=== PATIENT | female | born 1995 | race Caucasian/White ===

== ENCOUNTER 2017-03-05 15:23 | Emergency (ER) | payer BC ==
[2017-03-05] MEDS ORDERED: HYDROCODONE/ACETAMINOPHEN 5-325 MG TABLET PO ONE (16:39)
[2017-03-05] MEDS ORDERED: AMOXICILLIN TRIHYDRATE 500 MG CAPSULE PO ONE (16:39)
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
[2017-03-05 17:18] VITALS: BP 132/71
== END 2017-03-05 17:00 | disposition home or self-care (01) ==
LOC: ER 15:23
DX: S09.93XA Unspecified injury of face, initial encounter (principal); Y04.0XXA Assault by unarmed brawl or fight, initial encounter; F17.200 Nicotine dependence, unspecified, uncomplicated
CPT/HCPCS: 99283

== ENCOUNTER 2017-09-19 19:10 | Emergency (ER) | payer BC ==
--- NOTE | 2017-09-19 20:35 | ER Document Report ---
ED Medical Screen (RME) - General Mode of Arrival: Ambulatory Information source: Patient TRAVEL OUTSIDE OF THE [place] IN LAST 30 DAYS: No <SUSAN MADRIGAL - Last Filed: 09/19/17 20:36> <SHERRIE MONSALVE - Last Filed: 09/19/17 20:52> - General Chief Complaint: Passed Out Prior to Arrival Stated Complaint: FALL,DIZZINESS Time Seen by Provider: 09/19/17 20:25 Notes: 22 year old female that presents to the emergency department today with complaints of syncope just prior to arrival. Patient is 15 weeks . Patient states she felt diaphoretic, feeling like she needed to sit down when she "passed out". Patient scraped her right knee. Patient denies any diarrhea , cough, vaginal discharge, urinary symptoms, or abdominal pain. (SUSAN MADRIGAL) - Related Data Allergies/Adverse Reactions: No Known Allergies Allergy (Verified 03/05/17 15:36) Past Medical History - General Information source: Patient Renal/ Medical History: Denies: Hx Peritoneal Dialysis Psychiatric Medical History: Reports: Hx Anxiety, Hx Depression - Anxiety Surgical Hx: Negative - Immunizations Immunizations up to date: Yes Hx Diphtheria, Pertussis, Tetanus Vaccination: Yes <SUSAN MADRIGAL - Last Filed: 09/19/17 20:36> - Social History Cigarette use (# per day): No Family history: Reviewed & Not Pertinent <SHERRIE MONSALVE - Last Filed: 09/19/17 20:52> Review of Systems - Review of Systems Constitutional: See HPI, Diaphoresis Cardiovascular: See HPI, Syncope Female Genitourinary: See HPI, <SUSAN MADRIGAL - Last Filed: 09/19/17 20:36> Physical Exam - General General appearance: Appears well In distress: None - HEENT Head: Normocephalic, Atraumatic Eyes: Normal Mucous membranes: Dry - Respiratory Respiratory status: No respiratory distress Chest status: Nontender - Cardiovascular Rhythm: Regular Heart sounds: Normal auscultation Murmur: No <SUSAN MADRIGAL - Last Filed: 09/19/17 20:36> - Vital signs Vitals: Temp Pulse Resp BP Pulse Ox 98.0 F 72 16 109/55 L 99 09/19/17 19:34 09/19/17 19:34 09/19/17 19:34 09/19/17 19:34 09/19/17 19:34 - Vital Signs Vital signs: Temp Pulse Resp BP Pulse Ox 98.0 F 72 16 109/55 L 99 09/19/17 19:34 09/19/17 19:34 09/19/17 19:34 09/19/17 19:34 09/19/17 19:34 Scribe Documentation - Scribe Written by Scribe:: Apple Lau, [id number] acting as scribe for :: Maciej <SUSAN MADRIGAL - Last Filed: 09/19/17 20:36>
[2017-09-19 20:56] LABS: ABSOLUTE BASOPHILS # (AUTO) 0.1 10^3/uL (0.0-0.2); ABSOLUTE EOSINOPHILS # (AUTO) 0.1 10^3/uL (0.0-0.6); ABSOLUTE LYMPHOCYTES (AUTO) 1.8 10^3/uL (0.5-4.7); ABSOLUTE MONOCYTES (AUTO) 0.5 10^3/uL (0.1-1.4); BASOPHILS % (AUTO) 0.7 % (0-2); EOSINOPHILS % (AUTO) 1.7 % (0-6); HEMATOCRIT 34.8 % (36.0-47.0); HEMOGLOBIN 11.9 g/dL (12.0-15.5); LYMPHOCYTES % (AUTO) 21.2 % (13-45); MEAN CORPUSCULAR HEMOGLOBIN 31.2 pg (27.0-33.4); MEAN CORPUSCULAR HGB CONC 34.3 g/dL (32.0-36.0); MEAN CORPUSCULAR VOLUME 91 fl (80-97); MONOCYTES % (AUTO) 5.9 % (3-13); PLATELET COUNT 240 10^3/uL (150-450); RED BLOOD COUNT 3.82 10^6/uL (3.72-5.28); RED CELL DISTRIBUTION WIDTH 13.3 % (11.5-14.0); SEGMENTED NEUTROPHILS % (AUTO) 70.5 % (42-78); TOTAL CELLS COUNTED % (AUTO) 100 %; WHITE BLOOD COUNT 8.5 10^3/uL (4.0-10.5)
[2017-09-19 21:24] LABS: ANION GAP 7 (5-19); BLOOD UREA NITROGEN 11 mg/dL (7-20); CALCIUM 9.4 mg/dL (8.4-10.2); CARBON DIOXIDE 26 mmol/L (22-30); CHLORIDE 104 mmol/L (98-107); GLUCOSE 54 mg/dL (75-110); POTASSIUM 4.1 mmol/L (3.6-5.0); SODIUM 136.5 mmol/L (137-145)
--- NOTE | 2017-09-19 22:11 | EKG REPORT ---
SEVERITY:- NORMAL ECG - SINUS RHYTHM : Confirmed by: Gilbert Gordon 19-Sep-2017 22:11:10
[2017-09-19] MEDS ORDERED: NORMAL SALINE 1000 ML 1,000 ML IV ONE (23:23)
--- NOTE | 2017-09-19 23:33 | ER Document Report ---
ED General - General Chief Complaint: Passed Out Prior to Arrival Stated Complaint: FALL,DIZZINESS Time Seen by Provider: 09/19/17 20:25 Mode of Arrival: Ambulatory Notes: Patient is a 22-year-old female currently 15 weeks gestation who presents with an episode of passing out. Patient states that she was leaving a restaurant when she became lightheaded, diaphoretic, nauseated and then lost consciousness. She apparently has not ate or drink anything hardly all day. Significant other at the bedside reports that she has drank almost no water whatsoever. At the time of my assessment patient denies any ongoing symptoms or complaints. She states that she has a history of near syncope frequently in the past but has never actually syncopized. She denies any chest pain or shortness of breath either before or after the episode of syncope. No headache. She has not had any vaginal bleeding or discharge. She did not strike her abdomen during the fall today. She did fall and scraped her right knee. She denies any difficulty with range of motion of the knee or any pain to the area. Tetanus is up-to-date. TRAVEL OUTSIDE OF THE [place] IN LAST 30 DAYS: No - Related Data Allergies/Adverse Reactions: No Known Allergies Allergy (Verified 03/05/17 15:36) Past Medical History - General Information source: Patient - Social History Smoking Status: Current Every Day Smoker Cigarette use (# per day): No Chew tobacco use (# tins/day): No Frequency of alcohol use: None Drug Abuse: None Lives with: Spouse/Significant other Family History: Reviewed & Not Pertinent, Other - ovarian cysts Patient has suicidal ideation: No Patient has homicidal ideation: No Renal/ Medical History: Denies: Hx Peritoneal Dialysis Psychiatric Medical History: Reports: Hx Anxiety, Hx Depression - Anxiety Surgical Hx: Negative - Immunizations Immunizations up to date: Yes Hx Diphtheria, Pertussis, Tetanus Vaccination: Yes Review of Systems - Review of Systems Notes: Constitutional: Negative for fever. HENT: Negative for sore throat. Eyes: Negative for visual changes. Cardiovascular: Negative for chest pain. Respiratory: Negative for shortness of breath. Gastrointestinal: Negative for abdominal pain, vomiting or diarrhea. Genitourinary: Negative for dysuria. Musculoskeletal: Negative for back pain. Skin: Negative for rash. Neurological: Negative for headaches, weakness or numbness. 10 point ROS negative except as marked above and in HPI. Physical Exam - Vital signs Vitals: Temp Pulse Resp BP Pulse Ox 98.0 F 72 16 109/55 L 99 09/19/17 19:34 09/19/17 19:34 09/19/17 19:34 09/19/17 19:34 09/19/17 19:34 Interpretation: Normal Notes: PHYSICAL EXAMINATION: GENERAL: Well-appearing, well-nourished and in no acute distress. HEAD: Atraumatic, normocephalic. EYES: Pupils equal round and reactive to light, extraocular movements intact, sclera anicteric, conjunctiva are normal. ENT: nares patent, oropharynx clear without exudates. Moist mucous membranes. NECK: Normal range of motion, supple without lymphadenopathy LUNGS: Breath sounds clear to auscultation bilaterally and equal. No wheezes rales or rhonchi. HEART: Regular rate and rhythm without murmurs ABDOMEN: Soft, nontender, normoactive bowel sounds. No guarding, no rebound. No masses appreciated. EXTREMITIES: Normal range of motion, no pitting or edema. No cyanosis. NEUROLOGICAL: No focal neurological deficits. Moves all extremities spontaneously and on command. PSYCH: Normal mood, normal affect. SKIN: Warm, Dry, normal turgor, superficial abrasion over the right knee Course - Re-evaluation Re-evalutation: 09/19/17 23:27 Presentation of syncope likely secondary orthostatic hypotension. Patient admits to almost no oral fluid intake or food intake and is visibly dehydrated on examination. Patient is also hypoglycemic at time of presentation due to poor oral intake. IV fluids have been provided. Patient is 15 weeks gestation , normal heart tones, no vaginal bleeding or abdominal trauma today. Patient's heart rate went from 67-97 from a lying to standing position. Patient normotensive, alert, without focal neurologic deficits at time of arrival. Denies syncope was during exertion. No preceding symptoms of palpitations, chest pain, or shortness of breath. Patient asymptomatic at time of arrival. EKG is without evidence of HCOM, right heart strain, ST changes to suggest ischemia, prolong QTc, delta wave, epsilon wave, or Brugada syndrome. Patient denies any family history of sudden cardiac , personal history of of structural heart disease. Patient denies any symptoms to suggest an acute PE, SD , TAD, SAH, seizure, or acute GI bleed as the etiology of their syncope today. On exam, no murmurs to suggest critical aortic stenosis as possible etiology. Patient did strike her right knee when she fell and there is an abrasion over the right patella but no limited range of motion. Patient has declined an x- ray. Based on overall clinical history, exam findings, vitals, and patients appearance, I feel it is safe for patient to be discharged home at this time with close outpatient follow-up and strict return precautions. Patient is in agreement with this plan, has verbalized indications for return to ED, and questions have been answered. - Vital Signs Vital signs: Temp Pulse Resp BP Pulse Ox 98.0 F 66 18 105/63 100 09/19/17 19:34 09/19/17 22:47 09/20/17 00:02 09/20/17 00:02 09/20/17 00:02 - Laboratory Result Diagrams: 09/19/17 20:46 09/19/17 20:46 Laboratory results interpreted by me: 09/19/17 09/19/17 20:46 20:46 Hgb 11.9 L Hct 34.8 L Sodium 136.5 L Glucose 54 L - EKG Interpretation by Me Additional EKG results interpreted by me: 09/19/17 23:35 Sinus bradycardia. Rate 59. No ST elevations or depressions. QTC is 385. Discharge - Discharge Clinical Impression: Orthostatic hypotension, Second trimester , Hypoglycemia Syncope Qualifiers: Syncope type: unspecified Qualified Code(s): R55 - Syncope and collapse Condition: Good Disposition: HOME, SELF-CARE Additional Instructions: You were seen today after an episode of passing out. You are dehydrated and your blood sugar was low from not eating and drinking enough. Need to be sure to drink plenty of fluids and eat regularly throughout the day, particular given that you are . Your EKG here is normal. At this time, we do not feel that your episode of passing out was from any life-threatening cause. Return to emergency department if you have any further episodes of syncope, headache, weakness, numbness, chest pain, or shortness of breath. Please follow up closely with your primary care physician. Referrals: AME LOPEZ MD [Primary Care Provider] - Follow up as needed
[2017-09-20 00:36] VITALS: BP 105/63
== END 2017-09-20 00:36 | disposition home or self-care (01) ==
LOC: ER 19:10
DX: O26.892 Other specified pregnancy related conditions, second trimester (principal); I95.1 Orthostatic hypotension; E16.2 Hypoglycemia, unspecified; Z3A.15 15 weeks gestation of pregnancy; O99.332 Smoking (tobacco) complicating pregnancy, second trimester
CPT/HCPCS: 93005; 99284; 96360; 36415; 85025; 80048; 93010; J7030

== ENCOUNTER 2018-03-02 08:05 | Inpatient (IN) | payer BC ==
[2018-03-02 09:12] LABS: APPEARANCE,URINE SLIGHTLY-CLOUDY; BILIRUBIN,URINE NEGATIVE (NEGATIVE); COLOR,URINE YELLOW; GLUCOSE, URINE NEGATIVE (NEGATIVE); KETONES,URINE NEGATIVE (NEGATIVE); LEUKOCYTE ESTERASE,URINE SMALL (NEGATIVE); NITRITE,URINE NEGATIVE (NEGATIVE); PROTEIN,URINE NEGATIVE (NEGATIVE); URINE SPECIFIC GRAVITY 1.018
[2018-03-02 09:12] LABS: AMNISURE (ROM) POSITIVE (NEGATIVE)
[2018-03-02 09:26] LABS: URINE AMPHETAMINES SCREEN NEGATIVE; URINE BARBITURATES SCREEN NEGATIVE; URINE BENZODIAZEPINES SCREEN NEGATIVE; URINE COCAINE SCREEN NEGATIVE; URINE METHADONE SCREEN NEGATIVE; URINE PHENCYCLIDINE SCREEN NEGATIVE
[2018-03-02 09:33] LABS: URINE MARIJUANA (THC) SCREEN UNCONFIRMED POSITIVE
[2018-03-02] MEDS ORDERED: PENICILLIN G-K 5 MILLION UNIT VIAL ONE (09:59)
[2018-03-02] MEDS ORDERED: MISOPROSTOL 0.2 MG TABLET ONE (11:25)
[2018-03-02] MEDS ORDERED: FENTANYL/BUPIVACAINE/NS/PF 300 MCG/150 ML RTUINJ EPI ONE (11:26)
[2018-03-02] MEDS ORDERED: PHENYLEPHRINE HCL INJ/PF 10 MG/1 ML SDV ONE (11:26)
[2018-03-02] MEDS ORDERED: FENTANYL CITRATE INJ/PF 100 MCG/2 ML AMPUL ONE (11:26)
[2018-03-02] MEDS ORDERED: EPHEDRINE SULFATE INJ 50 MG/1 ML AMPULE ONE (11:26)
[2018-03-02] MEDS ORDERED: LIDOCAINE 2%/EPINEPHRINE INJ 20 ML VIAL ONE (11:27)
[2018-03-02] MEDS ORDERED: OXYTOCIN/NORMAL SALINE 20 UNIT/1,000 ML RTUINJ ONE (11:27)
[2018-03-02] MEDS ORDERED: BUPIVACAINE HCL 0.25 % INJ/PF (2.5 MG/1 ML) 30 ML VIAL ONE (11:27)
[2018-03-02] MEDS ORDERED: LIDOCAINE 1% INJ-PF (10 MG/ML) 30 ML SDV ONE (11:27)
[2018-03-02 11:51] LABS: ABSOLUTE BASOPHILS # (AUTO) 0.2 10^3/uL (0.0-0.2); ABSOLUTE EOSINOPHILS # (AUTO) 0.1 10^3/uL (0.0-0.6); ABSOLUTE LYMPHOCYTES (AUTO) 2.5 10^3/uL (0.5-4.7); ABSOLUTE MONOCYTES (AUTO) 0.4 10^3/uL (0.1-1.4); ABSOLUTE NEUT (AUTO) 8.5 10^3/uL (1.7-8.2); BASOPHILS % (AUTO) 1.5 % (0-2); EOSINOPHILS % (AUTO) 0.6 % (0-6); HEMATOCRIT 38.1 % (36.0-47.0); HEMOGLOBIN 12.8 g/dL (12.0-15.5); LYMPHOCYTES % (AUTO) 21.6 % (13-45); MEAN CORPUSCULAR HEMOGLOBIN 31.3 pg (27.0-33.4); MEAN CORPUSCULAR HGB CONC 33.7 g/dL (32.0-36.0); MEAN CORPUSCULAR VOLUME 93 fl (80-97); MONOCYTES % (AUTO) 3.8 % (3-13); PLATELET COUNT 296 10^3/uL (150-450); RED CELL DISTRIBUTION WIDTH 13.5 % (11.5-14.0); SEGMENTED NEUTROPHILS % (AUTO) 72.5 % (42-78); TOTAL CELLS COUNTED % (AUTO) 100 %; WHITE BLOOD COUNT 11.8 10^3/uL (4.0-10.5)
[2018-03-02] MEDS ORDERED: RINGERS SOLUTION,LACTATED 1,000 ML IV PRN (12:33)
[2018-03-02] MEDS ORDERED: LIDOCAINE 1.5%/EPINEPHRINE INJ-PF 30 ML SDV ONE (12:36)
--- NOTE | 2018-03-02 12:39 | Admission Physical ---
Datetime Report Generated by CPN: 03/02/2018 12:39 CURRENT ADMISSION Chief Complaint: Uterine Contractions; Suspected Ruptured Membranes Indication for Induction: Not Applicable Admit Impression : Term, Intrauterine ; Active Labor Admit Plan: Admit to Unit ALLERGIES Medication Allergies: No Medication Allergies: No Known Allergies (03/02/2018) Latex: No Latex Allergies Food Allergies: NONE Environmental Allergies: NONE OBSTETRICAL HISTORY EDC: 03/07/2018 00:00 : 1 Para: 0 Term: 0 : 0 SAB: 0 IAB: 0 Ectopic: 0 Livin Cesareans: 0 VBACs: 0 Multiple Births: 0 Gestational Diabetes: No Rh Sensitization: No Incompetent Cervix: No JULIA: No Infertility: No ART Treatment: No Uterine Anomaly: No IUGR: No Hx Previous C/S: No Macrosomia: No Hx Loss/Stillborn: No PIH: No Hx : No Placenta Previa/Abruption: No Depression/PP Depression: Yes PTL/PROM: No Post Hemorrhage: No Current Procedures: Ultrasound SEE RECORDS Alcohol: No Marijuana : Yes Marijuana Frequency: Occasional Previous Treatment: None Marijuana Comments: 3-4 WEEKS AGO Cocaine: No Other Illicit Drugs: No Cigarettes: Former Smoker. [id number] Cigarette Frequency: < 5 per day Advised to Stop: Yes MEDICAL HISTORY Diabetes: No Blood Transfusion: No Pulmonary Disease (Asthma, TB): Yes Breast Disease: No Hypertension: No Ingot Stripper Surgery: No Heart Disease: No Hosp/Surgery: No Autoimmune Disorder: No Anesthetic Complications: No Kidney Disease: No Abnormal Pap Smear: No Neuro/Epilepsy: No Psychiatric Disorders: Yes Other Medical Diseases: No Hepatitis/Liver Disease: No Significant Family History: No Varicosities/Phlebitis: No Trauma/Violence : No Thyroid Dysfunction: No Medical History Comments: H/O DEPRESSION _ ANXIETY SEASONAL ASTHMA INFECTIOUS HISTORY Gonorrhea: No Genital Herpes: No Chlamydia: No Tuberculosis: No Syphilis: No Hepatitis: No HIV/AIDS Exposure: No Rash or Viral Illness: No HPV: No PHYSICAL EXAM General: Normal HEENT: Normal Neurologic: Normal Thyroid: Normal Heart: Normal Lungs: Normal Breast: Normal Back: Normal Abdomen: Normal Genitourinary Exam: Normal Extremities: Normal DTRs: Normal Pelvic Type: Adequate Vital Signs: Reviewed VAGINAL EXAM Dilatation: 3 Effacement: 90 Station: -1 MEMBRANES Pooling: Positive Membranes: Ruptured Amniotic Fluid Color: Clear FETUS A EGA: 39.2 Monitoring: External US FHR- Baseline: 130 Variability: Moderate 6-25bpm Accelerations: 15X15 Decelerations: None FHR Category: Category I Estimated Weight (gm): 3500 Presentation: Vertex PLANS FOR LABOR AND DELIVERY Labor and Delivery: None Pain Management: Medications; Epidural Feeding Preference: Breast Benefit of Breast Feed Discussed: Yes Circumcision: N/A INFORMED CONSENT Signature: with User ID: [email or web address]
[2018-03-02] MEDS ORDERED: DIBUCAINE 1% OINTMENT 28 GM TP PRN (16:07)
[2018-03-02] MEDS ORDERED: MEASLES,MUMPS&RUBELLA VACC/PF 0.5 ML VIAL SUBCUT PRN (16:07)
[2018-03-02] MEDS ORDERED: NA PHOS,M-B/NA PHOS,DI-BA (ADULT) 133 ML ENEMA PR PRN (16:07)
[2018-03-02] MEDS ORDERED: ZOLPIDEM TARTRATE 5 MG TABLET PO PRN (16:07)
[2018-03-02] MEDS ORDERED: ACETAMINOPHEN 650 MG SUPP.RECT PR PRN (16:07)
[2018-03-02] MEDS ORDERED: PROMETHAZINE HCL INJ 25 MG/1 ML VIAL IV PRN (16:07)
[2018-03-02] MEDS ORDERED: PROMETHAZINE HCL 25 MG SUPP.RECT PR PRN (16:07)
[2018-03-02] MEDS ORDERED: PROMETHAZINE HCL 25 MG TABLET PO PRN (16:07)
[2018-03-02] MEDS ORDERED: ACETAMINOPHEN WITH CODEINE #3 TABLET PO PRN (16:07)
[2018-03-02] MEDS ORDERED: GLYCERIN/WITCH HAZEL LEAF 1 EACH MED..PAD TP PRN (16:07)
[2018-03-02] MEDS ORDERED: DIPH/PERTUSS(ACELL)/TETANUS VAC/PF 0.5 ML SYR (>=10YO) IM PRN (16:07)
[2018-03-02] MEDS ORDERED: PSEUDOEPHEDRINE HCL 30 MG TABLET PO PRN (16:07)
[2018-03-02] MEDS ORDERED: OXYTOCIN/NORMAL SALINE 20 UNIT/1,000 ML RTUINJ IV PRN (16:07)
[2018-03-02] MEDS ORDERED: MAGNESIUM HYDROXIDE SUSP 30 ML UDCUP PO PRN (16:07)
[2018-03-02] MEDS ORDERED: DIPHENHYDRAMINE HCL 25 MG CAPSULE PO PRN (16:07)
[2018-03-02] MEDS: DOCUSATE SODIUM 100 MG CAPSULE PO SCH (17:43)
[2018-03-02] MEDS: FERROUS SULFATE 325 MG TABLET PO SCH (17:43)
[2018-03-02] MEDS: PENICILLIN G POTASSIUM 2,500,000 UNIT in DEXTROSE 5%-WATER 50 ML IV SCH ×3 (18:11→23:54)
[2018-03-02] MEDS: BENZOCAINE/MENTHOL AEROSOL SPRAY 56 ML TOP PRN (19:00)
[2018-03-02] MEDS: ACETAMINOPHEN WITH CODEINE #3 TABLET PO PRN (19:02)
--- NOTE | 2018-03-02 19:02 | Delivery Summary ---
Del Sum A-C Datetime Report Generated by CPN: 03/02/2018 19:02 DELIVERY PERSONNEL DELIVERY PERSONNEL: [id number] Delivery Doctor:: Yokasta Lino MD Labor and Delivery Nurse:: Tg Gregory RN Nursery Nurse:: Gita Nicole RN Nursery Nurse:: Fe Middleton RN Freight Sales Broker/SUPERVISOR POLISHING: Selam Ribeiro CNA II Freight Sales Broker/SUPERVISOR POLISHING: C DEEMS, ST MATERNAL INFORMATION Delivery Anesthesia: Epidural Medications After Delivery: Pitocin Bolus-Please Comment; Pitocin Drip 20 Units/1000ml NSS Estimated Blood Loss (ml): 200 Maternal Complications: None LABOR SUMMARY EDC: 03/07/2018 00:00 No. Babies in Womb: 1 Attempted: No Labor Anesthesia: Epidural LABOR INFORMATION Reason for Induction: Not Applicable Complete Dilatation: 03/02/2018 15:39 Oxytocin: Augmentation Group B Beta Strep: POSITIVE Antibiotics # of Doses: 1 Antibiotics Time of Last Dose: 1030 Name of Antibiotic Given: PENICILLIN G Steroids Given: None Reason Steroids Not Administered: Not Applicable STAGES OF LABOR Stage 2 hr: 0 Stage 2 min: 12 Stage 3 hr: 0 Stage 3 min: 3 VAGINAL DELIVERY Episiotomy: None Laceration #1: Vaginal Laceration Extension #1: Second Degree Laceration Repair: Yes Laceration Repair Note: 2-0 chromic in normal fashion Sponge Count Correct: N/A Sharps Count Correct: N/A BABY A INFORMATION Infant Delivery Date/Time: 03/02/2018 15:51 Method of Delivery: Vaginal Born in Route : No : N/A Forceps: N/A Vacuum Extraction: N/A Shoulder Dystocia : No PRESENTATION/POSITION BABY A Presentation: Cephalic Cephalic Presentation: Vertex Vertex Position: Left Occipital Anterior Breech Presentation: N/A PLACENTA INFORMATION BABY A Placenta Delivery Time : 03/02/2018 15:54 Placenta Method of Delivery: Spontaneous Placenta Status: Delivered SCORES BABY A Heart Rate 1 min: >100 bpm Resp Effort 1 min: Good Cry Reflex Irritability 1 min: Cough or Sneeze or Pulls Away Muscle Tone 1 min: Active Motion Color 1 min: Blue/Pale Resuscitation Effort 1 min: Tactile Stimulation SCORE 1 MIN: 8 Heart Rate 5 min: >100 bpm Resp Effort 5 min: Good Cry Reflex Irritability 5 min: Cough or Sneeze or Pulls Away Muscle Tone 5 min: Active Motion Color 5 min: Body [place], Extremities Blue Resuscitation Effort 5 min: Tactile Stimulation SCORE 5 MIN: 9 INFORMATION BABY A Gestational Age at Delivery: 39.2 Gestational Status: Full Term- 39- 40.6 Weeks Outcome : Liveborn Condition : Stable Sex: Female IDENTIFICATION BABY A Verification Date/Time: 03/02/2018 17:01 ID Band Number: [id number] Mother's Name Verified: Yes RN Verifying Infant: R Anvarro RN/D [place] RNC WEIGHT/LENGTH BABY A Infant Birthweight (gm): 3030 Infant Weight (lb): 6 Weight (oz): 11 Length (in): 18.50 Length (cm): 46.99 CORD INFORMATION BABY A No. Cord Vessels: 3 Nuchal Cord : Around Neck x2, Loose Cord Blood Taken: Yes-For Eval (Mom's Blood Type - or O+) Infant Suction: None ASSESSMENT BABY A Infant Complications: None Physical Findings at Delivery: Within Normal Limits Infant Respirations: Appears Normal Skin to Skin: Yes Skin to Skin Time (min): 50 Transplant Worker/ALS Called : No Infant Care By: Eufemia MONTEJO RN/ Carlos MIDDLETON RN Transferred To: Remains with Mother BABY B INFORMATION : N/A SIGNATURES Signature: with User ID: [email or web address]
[2018-03-02] MEDS: FAMOTIDINE 20 MG TABLET PO SCH (21:16)
[2018-03-02] MEDS: IBUPROFEN 800 MG TABLET PO SCH (21:16)
[2018-03-03] MEDS: ACETAMINOPHEN WITH CODEINE #3 TABLET PO PRN ×2 (00:08→10:32)
[2018-03-03] MEDS: IBUPROFEN 800 MG TABLET PO SCH ×3 (06:19→21:26)
[2018-03-03 07:30] LABS: HEMATOCRIT 31.9 % (36.0-47.0); HEMOGLOBIN 10.9 g/dL (12.0-15.5); MEAN CORPUSCULAR HEMOGLOBIN 31.6 pg (27.0-33.4); MEAN CORPUSCULAR HGB CONC 34.2 g/dL (32.0-36.0); MEAN CORPUSCULAR VOLUME 93 fl (80-97); PLATELET COUNT 241 10^3/uL (150-450); RED BLOOD COUNT 3.45 10^6/uL (3.72-5.28); RED CELL DISTRIBUTION WIDTH 13.8 % (11.5-14.0); WHITE BLOOD COUNT 11.9 10^3/uL (4.0-10.5)
[2018-03-03] MEDS: SENNOSIDES/DOCUSATE 8.6-50 MG 1 EACH TABLET PO SCH (10:33)
[2018-03-03] MEDS: FAMOTIDINE 20 MG TABLET PO SCH ×2 (10:33→21:26)
[2018-03-03] MEDS: FERROUS SULFATE 325 MG TABLET PO SCH ×2 (10:33→18:05)
[2018-03-03] MEDS: PRENATAL VITAMIN W DHA CAPSULE PO SCH (10:33)
[2018-03-03] MEDS: DOCUSATE SODIUM 100 MG CAPSULE PO SCH ×2 (10:33→18:06)
--- NOTE | 2018-03-03 11:37 | PDOC PROGRESS REPORT ---
Subjective-OB Progress Note for:: 03/03/18 Subjective: Pt doing well, no concerns. She reports light bleeding, regular diet, no difficulty voiding. Physical Exam (OB) Vital Signs: Temp Pulse Resp BP Pulse Ox 97.8 F 60 16 128/71 H 99 03/03/18 08:04 03/03/18 08:04 03/03/18 08:04 03/03/18 08:04 03/03/18 08:04 Intake & Output 03/02/18 03/03/18 03/04/18 06:59 06:59 06:59 Weight 92.4 kg - Abdomen Description: Soft, Round Hernia Present: No Fundal Description: Firm, Midline Fundal Height: u/u - u/2 Objective-Diagnostic Laboratory: 03/03/18 06:42 03/02/18 03/02/18 03/03/18 11:37 11:37 06:42 WBC 11.8 H 11.9 H RBC 4.10 3.45 L Hgb 12.8 10.9 L Hct 38.1 31.9 L MCV 93 93 MCH 31.3 31.6 MCHC 33.7 34.2 RDW 13.5 13.8 Plt Count 296 241 Seg Neutrophils % 72.5 Lymphocytes % 21.6 Monocytes % 3.8 Eosinophils % 0.6 Basophils % 1.5 Absolute Neutrophils 8.5 H Absolute Lymphocytes 2.5 Absolute Monocytes 0.4 Absolute Eosinophils 0.1 Absolute Basophils 0.2 Blood Type O POSITIVE Antibody Screen NEGATIVE Assessment and Plan(PN) - Assessment and Plan (1) (spontaneous vaginal delivery) Is this a current diagnosis for this admission?: Yes - Time Spent with Patient Time with patient: Less than 15 minutes Medications reviewed and adjusted accordingly: Yes - Disposition Anticipated Discharge: Home Within: within 24 hours
[2018-03-03] MEDS: BENZOCAINE/MENTHOL AEROSOL SPRAY 56 ML TOP PRN (21:29)
[2018-03-04] MEDS: ACETAMINOPHEN WITH CODEINE #3 TABLET PO PRN (00:19)
[2018-03-04] MEDS: IBUPROFEN 800 MG TABLET PO SCH ×2 (05:51→14:25)
--- NOTE | 2018-03-04 09:15 | PDOC DISCHARGE SUMMARY ---
Final Diagnosis Discharge Date: 03/04/18 - Final Diagnosis (1) (spontaneous vaginal delivery) Is this a current diagnosis for this admission?: Yes Discharge Data - Discharge Medication Home Medications: Vit/Iron Fum/Folic AC [ Tablet] 1 tab PO DAILY 03/02/18 Reason(s) for Admission: Onset of Labor Intrapartum Procedure(s): Spontaneous Vaginal Delivery Complication(s): Laceration-Vaginal Laceration-Degree: 2nd - Diagnosis Test Laboratory: Temp Pulse Resp BP Pulse Ox 98.0 F 70 16 123/78 97 03/04/18 07:42 03/04/18 07:42 03/04/18 07:42 03/04/18 07:42 03/04/18 07:42 03/02/18 03/02/18 03/03/18 08:17 11:37 06:42 RBC 4.10 3.45 L Hgb 12.8 10.9 L Hct 38.1 31.9 L Urine Opiates Screen NEGATIVE - Discharge information/Instructions Discharge Activity: Activity As Tolerated, Pelvic Rest Discharge Diet: Regular Disposition: HOME, SELF-CARE Follow up with: [facility] in: 4
[2018-03-04 10:31] VITALS: BP 120/61
[2018-03-04] MEDS: FERROUS SULFATE 325 MG TABLET PO SCH (11:31)
[2018-03-04] MEDS: DOCUSATE SODIUM 100 MG CAPSULE PO SCH (11:31)
[2018-03-04] MEDS: SENNOSIDES/DOCUSATE 8.6-50 MG 1 EACH TABLET PO SCH (11:31)
[2018-03-04] MEDS: PRENATAL VITAMIN W DHA CAPSULE PO SCH (11:31)
[2018-03-04] MEDS: FAMOTIDINE 20 MG TABLET PO SCH (11:31)
== END 2018-03-04 14:33 | disposition home or self-care (01) | DRG 775 ==
LOC: LC 08:05 → LR 09:39 → 2N 17:26
PROVIDERS: ADMIT Obstetrics & Gynecology; ATTEND Obstetrics & Gynecology
PROC: 10E0XZZ Delivery of Products of Conception, External Approach (ICD-10-PCS; principal; 2018-03-02)
PROC: 0KQM0ZZ Repair Perineum Muscle, Open Approach (ICD-10-PCS; 2018-03-02)
PROC: 4A1HXCZ Monitoring of Products of Conception, Cardiac Rate, External Approach (ICD-10-PCS; 2018-03-02)
DX: O99.824 Streptococcus B carrier state complicating childbirth (principal); O70.1 Second degree perineal laceration during delivery; O99.344 Other mental disorders complicating childbirth; F32.9 Major depressive disorder, single episode, unspecified; O99.513 Diseases of the respiratory system complicating pregnancy, third trimester; J45.909 Unspecified asthma, uncomplicated; O69.81X0 Labor and delivery complicated by cord around neck, without compression, not applicable or unspecified; F41.9 Anxiety disorder, unspecified; Z87.891 Personal history of nicotine dependence; Z3A.39 39 weeks gestation of pregnancy; Z37.0 Single live birth
CPT/HCPCS: 36415; 80307; 81005; 84112; 85025; 85027; 86592; 86850; 86900; 86901; 90715; G0480; J2370; J2540; J2590; J3010; J3490

== ENCOUNTER 2019-07-12 01:52 | Emergency (ER) | payer BC ==
--- NOTE | 2019-07-12 05:39 | ER Document Report ---
ED Medical Screen (RME) - General Chief Complaint: Shortness Of Breath Stated Complaint: SHORTNESS OF BREATH Time Seen by Provider: 07/12/19 05:16 Notes: 23-year-old female comes emergency department for chief complaint of feeling like she cannot breathe, she states that she felt like she could not catch her breath, she started hyperventilating, all of her extremity started tingling. She denies specific pain in her chest. She denies vomiting or fever, cough. She states that she does have a history of anxiety and used to be on Zoloft for this but is not on anything at this time. She denies control use, lower extremity swelling, history of blood clot, recent travel or surgery. She states she feels a lot better now than she did when she arrived at triage. TRAVEL OUTSIDE OF THE [place] IN LAST 30 DAYS: No - Related Data Allergies/Adverse Reactions: No Known Allergies Allergy (Verified 03/02/18 09:15) Past Medical History - Social History Chew tobacco use (# tins/day): No Frequency of alcohol use: None Drug Abuse: Marijuana Family history: Reviewed & Not Pertinent Renal/ Medical History: Denies: Hx Peritoneal Dialysis Psychiatric Medical History: Reports: Hx Anxiety, Hx Depression - Anxiety - Immunizations Immunizations up to date: Yes Hx Diphtheria, Pertussis, Tetanus Vaccination: Yes Physical Exam - Vital signs Vitals: Temp Pulse Resp BP Pulse Ox 98.5 F 100 24 H 189/95 H 100 07/12/19 02:09 07/12/19 02:09 07/12/19 02:09 07/12/19 02:09 07/12/19 02:09 - Respiratory Respiratory status: No respiratory distress Breath sounds: Normal - Cardiovascular Rhythm: Regular Heart sounds: Normal auscultation, S1 appreciated, S2 appreciated Course - Re-evaluation Re-evalutation: I have greeted and performed a rapid initial assessment of this patient. A comprehensive ED assessment and evaluation of the patient, analysis of test results and completion of the medical decision making process will be conducted by additional ED providers. - Vital Signs Vital signs: Temp Pulse Resp BP Pulse Ox 98.5 F 100 24 H 189/95 H 100 07/12/19 02:09 07/12/19 02:09 07/12/19 02:09 07/12/19 02:09 07/12/19 02:09
[2019-07-12 06:28] LABS: ABSOLUTE BASOPHILS # (AUTO) 0.1 10^3/uL (0.0-0.2); ABSOLUTE EOSINOPHILS # (AUTO) 0.1 10^3/uL (0.0-0.6); ABSOLUTE LYMPHOCYTES (AUTO) 3.1 10^3/uL (0.5-4.7); ABSOLUTE MONOCYTES (AUTO) 0.5 10^3/uL (0.1-1.4); ABSOLUTE NEUT (AUTO) 5.2 10^3/uL (1.7-8.2); BASOPHILS % (AUTO) 0.7 % (0-2); EOSINOPHILS % (AUTO) 1.2 % (0-6); HEMATOCRIT 39.8 % (36.0-47.0); HEMOGLOBIN 13.8 g/dL (12.0-15.5); LYMPHOCYTES % (AUTO) 34.5 % (13-45); MEAN CORPUSCULAR HEMOGLOBIN 31.9 pg (27.0-33.4); MEAN CORPUSCULAR HGB CONC 34.8 g/dL (32.0-36.0); MEAN CORPUSCULAR VOLUME 92 fl (80-97); PLATELET COUNT 242 10^3/uL (150-450); RED BLOOD COUNT 4.33 10^6/uL (3.72-5.28); RED CELL DISTRIBUTION WIDTH 13.4 % (11.5-14.0); SEGMENTED NEUTROPHILS % (AUTO) 57.6 % (42-78); TOTAL CELLS COUNTED % (AUTO) 100 %
--- NOTE | 2019-07-12 06:45 | RADIOLOGY REPORT (SQ) ---
EXAM DESCRIPTION: XR CHEST 2 VIEWS COMPLETED DATE/TME: 07/12/2019 05:37 CLINICAL HISTORY: 23 years, Female, shortness of breath COMPARISON: None. NUMBER OF VIEWS: 2 TECHNIQUE: 2 views of the chest LIMITATIONS: None. FINDINGS: Heart size is normal. Lungs are clear. No pneumothorax IMPRESSION: Negative chest copyright 2010 [employer]- All Rights Reserved
[2019-07-12 06:47] LABS: ANION GAP 13 (5-19); BLOOD UREA NITROGEN 15 mg/dL (7-20); CALCIUM 9.5 mg/dL (8.4-10.2); CARBON DIOXIDE 23 mmol/L (22-30); CHLORIDE 106 mmol/L (98-107); GLUCOSE 99 mg/dL (75-110)
--- NOTE | 2019-07-12 08:45 | ER Document Report ---
ED Respiratory Problem - General Chief Complaint: Shortness Of Breath Stated Complaint: SHORTNESS OF BREATH Time Seen by Provider: 07/12/19 05:16 Primary Care Provider: JOCY SALVADOR MD [Primary Care Provider] - Follow up as needed TRAVEL OUTSIDE OF THE [place] IN LAST 30 DAYS: No - HPI Onset: Just prior to arrival Duration: Continuous Quality of pain: Achy Severity: Moderate Pain Level: 2 Short of Breath: Moderate Chest pain/discomfort: Center Cough: Nonproductive Sputum amount: None Associated symptoms: None Notes: 23 year old female with history of asthma and anxiety , current everyday smoker presents with a week of sob. Some tingling in hands this am and more sob. Heaviness in chest and concrned over her heart. No fever or chills. Thc use on occaision. - Related Data Allergies/Adverse Reactions: No Known Allergies Allergy (Verified 03/02/18 09:15) Past Medical History - Social History Smoking Status: Current Every Day Smoker Chew tobacco use (# tins/day): No Frequency of alcohol use: None Drug Abuse: Marijuana Family History: Reviewed & Not Pertinent, Other - ovarian cysts Patient has suicidal ideation: No Patient has homicidal ideation: No Renal/ Medical History: Denies: Hx Peritoneal Dialysis Psychiatric Medical History: Reports: Hx Anxiety, Hx Depression - Anxiety - Immunizations Immunizations up to date: Yes Hx Diphtheria, Pertussis, Tetanus Vaccination: Yes Review of Systems - Review of Systems Constitutional: No symptoms reported EENT: No symptoms reported Cardiovascular: No symptoms reported Respiratory: See HPI, Short of breath Gastrointestinal: No symptoms reported Genitourinary: No symptoms reported Female Genitourinary: No symptoms reported Musculoskeletal: No symptoms reported Skin: No symptoms reported Hematologic/Lymphatic: No symptoms reported Neurological/Psychological: No symptoms reported Physical Exam - Vital signs Vitals: Temp Pulse Resp BP Pulse Ox 98.5 F 100 24 H 189/95 H 100 07/12/19 02:09 07/12/19 02:09 07/12/19 02:09 07/12/19 02:09 07/12/19 02:09 Interpretation: Normal - General General appearance: Appears well, Alert - HEENT Head: Normocephalic, Atraumatic Eyes: Normal Pupils: PERRL - Respiratory Respiratory status: No respiratory distress Chest status: Nontender Breath sounds: Normal Chest palpation: Normal - Cardiovascular Rhythm: Regular Heart sounds: Normal auscultation Murmur: No - Abdominal Inspection: Normal Distension: No distension Bowel sounds: Normal Tenderness: Nontender Organomegaly: No organomegaly - Back Back: Normal, Nontender - Extremities General upper extremity: Normal inspection, Nontender, Normal color, Normal ROM, Normal temperature General lower extremity: Normal inspection, Nontender, Normal color, Normal ROM, Normal temperature, Normal weight bearing. No: Dougie's sign - Neurological Neuro grossly intact: Yes Cognition: Normal Orientation: AAOx4 [place] Coma Scale Eye Opening: Spontaneous [place] Coma Scale Verbal: Oriented [place] Coma Scale Motor: Obeys Commands [place] Coma Scale Total: 15 Speech: Normal Motor strength normal: LUE, RUE, LLE, RLE Sensory: Normal - Psychological Associated symptoms: Normal affect, Normal mood - Skin Skin Temperature: Warm Skin Moisture: Dry Skin Color: Normal Course - Re-evaluation Re-evalutation: 07/12/19 08:45 Upon recheck she is resting and improved. No pain and no sob. Her heart rate is 50's - 60's and no tachypnea. No leg pain or swelling or pe risks. Discussed followup and she expressed understanding. - Vital Signs Vital signs: Temp Pulse Resp BP Pulse Ox 97.6 F 53 L 20 109/52 L 100 07/12/19 06:27 07/12/19 06:27 07/12/19 06:27 07/12/19 06:27 07/12/19 06:27 - Laboratory Result Diagrams: 07/12/19 06:10 07/12/19 06:10 - Diagnostic Test Radiology reviewed: Image reviewed, Reports reviewed Discharge - Discharge Clinical Impression: Dyspnea Qualifiers: Dyspnea type: unspecified Qualified Code(s): R06.00 - Dyspnea, unspecified Condition: Good Disposition: HOME, SELF-CARE Instructions: Dyspnea, Nonspecific ([facility]), Asthma ([facility]) Additional Instructions: See Dr Salvador in follow up. Return here for any problems or any concerns. Forms: Return to Work Referrals: JOCY SALVADOR MD [Primary Care Provider] - Follow up as needed
[2019-07-12 09:01] VITALS: BP 116/54
--- NOTE | 2019-07-12 16:16 | EKG REPORT ---
SEVERITY:- NORMAL ECG - SINUS RHYTHM : Confirmed by: Vanessa Ceballos MD 12-Jul-2019 16:16:15
== END 2019-07-12 09:00 | disposition home or self-care (01) ==
LOC: ER 01:52
DX: R06.00 Dyspnea, unspecified (principal); R06.02 Shortness of breath; F17.200 Nicotine dependence, unspecified, uncomplicated
CPT/HCPCS: 36415; 71046; 80048; 84703; 85025; 93005; 93010

== ENCOUNTER → 2020-07-31 | Outpatient (CLI) | payer BC ==
--- NOTE | 2020-07-31 11:24 | RADIOLOGY REPORT (SQ) ---
EXAM DESCRIPTION: CT HEAD WITHOUT IMAGES COMPLETED DATE/TIME: 07/31/2020 11:09 am REASON FOR STUDY: G44.319 ACUTE POST-TRAUMATIC HEADACHE, NOT INTRACTABLE G44.319 ACUTE POST-TRAUMAT IC HEADACHE, NOT INTRACTABLE H53.9 UNSPECIFIED VISUAL DISTURBANCE S09.90XA UNSPECIFIED INJURY OF HE AD, INITIAL ENCOUNTER COMPARISON: None. TECHNIQUE: Axial images acquired through the brain without intravenous contrast. Images reviewed wi th bone, brain and subdural windows. Additional sagittal and coronal reconstructions were generated. Images stored on PACS. All CT scanners at this facility use dose modulation, iterative reconstruction, and/or weight based d osing when appropriate to reduce radiation dose to as low as reasonably achievable (ALARA). [facility]: Dose Right [facility]: CareDose [facility]: Dose Right [facility]: Teradose 4D [facility]: [employer] RADIATION DOSE: CT Rad equipment meets quality standard of care and radiation dose reduction techniq ues were employed. CTDIvol: 48.8 mGy. DLP: 861 mGy-cm. mGy. LIMITATIONS: None. FINDINGS: VENTRICLES: Normal size and contour. CEREBRUM: No masses. No hemorrhage. No midline shift. No evidence for acute infarction. Normal gra y/white matter differentiation. No areas of low density in the white matter. CEREBELLUM: No masses. No hemorrhage. No alteration of density. No evidence for acute infarction. EXTRAAXIAL SPACES: No fluid collections. No masses. ORBITS AND GLOBE: No intra- or extraconal masses. Normal contour of globe without masses. CALVARIUM: No fracture. PARANASAL SINUSES: No fluid or mucosal thickening. SOFT TISSUES: No mass or hematoma. OTHER: No other significant finding. IMPRESSION: NORMAL BRAIN CT WITHOUT CONTRAST. EVIDENCE OF ACUTE STROKE: NO. COMMENT: Quality ID # [id number]: Final reports with documentation of one or more dose reduction techniques (e.g., Automated exposure control, adjustment of the mA and/or kV according to patient size, use of iterative reconstruction technique) TECHNICAL DOCUMENTATION: JOB ID: [id number] 2010 [employer]- All Rights Reserved Reading location - IP/workstation name: [email or web address]
== END ==
LOC: RAD 11:00
PROVIDERS: ATTEND Physician Assistant
DX: S09.90XA Unspecified injury of head, initial encounter (principal); X58.XXXA Exposure to other specified factors, initial encounter; G44.319 Acute post-traumatic headache, not intractable; H53.9 Unspecified visual disturbance
CPT/HCPCS: 70450